=== PATIENT | male | born 1955 ===

== ENCOUNTER 2016-12-13 02:47 | Emergency (ER) | payer OTHER ==
[2016-12-13 02:56] VITALS: TEMP 97.5
--- NOTE | 2016-12-13 03:03 | C.PDOC ---
History Of Present Illness Patient presents to the ER with a complaint of a sudden, dull, throbbing headache. Patient reports he has been complaint with his blood pressure medication, however, headache still persists. Patient's blood pressure was 108/ 106 on arrival. Denies vision changes, nausea, or vomiting. Time Seen by Provider: 12/13/16 03:03 Chief Complaint (Nursing): Headache History Per: Patient History/Exam Limitations: no limitations Onset/Duration Of Symptoms: Hrs, Sudden Onset Current Symptoms Are (Timing): Still Present Severity: Moderate Pain Scale Rating Of: 4 Quality: Dull, Other (Throbbing) Preceeding Symptoms: None Associated Symptoms: denies: Photophobia, Blurred Vision, Nausea, Vomiting Recent travel outside of the [place]: No Past Medical History Reviewed: Historical Data, Nursing Documentation, Vital Signs Vital Signs: Last Vital Signs Temp 97.5 F L 12/13/16 02:48 Pulse 45 L 12/13/16 04:20 Resp 14 12/13/16 04:20 BP 149/98 H 12/13/16 04:20 Pulse Ox 100 12/13/16 04:38 - Medical History PMH: HTN Surgical History: No Surg Hx Family History: States: No Known Family Hx - Social History Hx Alcohol Use: Yes Hx Substance Use: No - Immunization History Hx Tetanus Toxoid Vaccination: No Hx Influenza Vaccination: No Hx Pneumococcal Vaccination: No Review Of Systems Eyes: Negative for: Vision Change Gastrointestinal: Negative for: Nausea, Vomiting Neurological: Positive for: Headache Physical Exam - Physical Exam Appears: Non-toxic Skin: Warm, Dry Oral Mucosa: Moist Chest: Symmetrical, No Tenderness Cardiovascular: Rhythm Regular, No Murmur Respiratory: No Rales, No Rhonchi, No Wheezing Gastrointestinal/Abdominal: Soft, No Tenderness Neurological/Psych: Oriented x3, Other (No focal deficits) ED Course And Treatment - Laboratory Results Result Diagrams: 12/13/16 03:20 12/13/16 03:20 ECG: Interpreted By Me ECG Rhythm: Sinus Bradycardia (46), Nonspecific Changes O2 Sat by Pulse Oximetry: 100 Pulse Ox Interpretation: Normal Progress Note: Catapres PO, toradol IVP, and zofran IVP administered. Reevaluation Time: 05:47 Reassessment Condition: Improved Disposition Counseled Patient/Family Regarding: Studies Performed, Diagnosis, Need For Followup, Rx Given - Disposition Referrals: Nisha Bell APN [Advanced Practice Nurse] - Disposition: HOME/ ROUTINE Disposition Time: 03:03 Condition: FAIR Additional Instructions: Please return if symptoms recur Prescriptions: Naproxen [Naprosyn] 1 tab PO BID PRN #25 tab PRN Reason: Pain Ondansetron ODT [Zofran ODT] 1 odt PO TID #15 odt Instructions: Migraine Headache (ED), Hypertension (DC) - Clinical Impression Clinical Impression: Headache, Hypertension - Scribe Statement The provider has reviewed the documentation as recorded by the Scribe Clay Cardenas All medical record entries made by the Scribe were at my direction and personally dictated by me. I have reviewed the chart and agree that the record accurately reflects my personal performance of the history, physical exam, medical decision making, and the department course for this patient. I have also personally directed, reviewed, and agree with the discharge instructions and disposition.
[2016-12-13 03:18] LABS: BASO # 0.1 K/uL (0.0-0.2); BASO % 0.9 % (0.0-2.0); EOS # 0.1 K/uL (0.0-0.7); EOS % 1.5 % (0.0-4.0); LYMPH # 2.7 K/uL (1.0-4.3); LYMPH % 45.3 % (20.0-40.0); MEAN CELL VOLUME 80.5 fL (80.0-94.0); MEAN CORPUSCULAR HEMOGLOBIN 25.8 pg (27.0-31.0); MEAN PLATELET VOLUME 10.3 fL (7.2-11.7); MONO # 0.7 K/uL (0.0-0.8); RED CELL DISTRIBUTION WIDTH 14.5 % (11.5-14.5); WHITE BLOOD COUNT 5.9 K/uL (4.8-10.8)
[2016-12-13 03:26] LABS: CHLORIDE 101 mmol/L (98-107); POTASSIUM 3.8 mmol/L (3.6-5.2); SODIUM 139 mmol/L (132-148)
[2016-12-13 03:28] LABS: ALKALINE PHOSPHATASE 80 U/L (38-126); AST/SGOT 25 U/L (17-59); BILIRUBIN,TOTAL 0.3 mg/dL (0.2-1.3); CARBON DIOXIDE 26 mmol/L (22-30); GFR AFRICAN-AMERICAN > 60; TOTAL PROTEIN 7.4 g/dL (6.3-8.3)
[2016-12-13 03:29] LABS: ALT/SGPT 25 U/L (21-72); BLOOD UREA NITROGEN 20 mg/dL (9-20); CALCIUM 9.3 mg/dl (8.6-10.4); GLUCOSE,RANDOM 83 mg/dL (75-110)
--- NOTE | 2016-12-13 03:57 | CT ---
EXAM: CT Head Without Intravenous Contrast CLINICAL HISTORY: 61 years old, male; Pain; Headache TECHNIQUE: Axial computed tomography images of the head/brain without intravenous contrast. This CT exam was performed using one or more of the following dose reduction techniques: automated exposure control, adjustment of the mA and/or kV according to patient size, and/or use of iterative reconstruction technique. COMPARISON: No relevant prior studies available. FINDINGS: Brain: No intracranial hemorrhage. No mass. No definite edema. Ventricles: No hydrocephalus. Bones/joints: No acute fracture. Soft tissues: Unremarkable. Sinuses: Scattered minimal mucosal thickening of ethmoid sinuses. Mastoid air cells: No mastoid effusion. Orbits: Unremarkable as visualized. IMPRESSION: 1. No acute intracranial abnormality. 2. Incidental/non-acute findings are described above.
[2016-12-13 04:20] LABS: URINE BILIRUBIN NEGATIVE (NEGATIVE); URINE BLOOD NEGATIVE (NEGATIVE); URINE COLOR Straw (YELLOW); URINE GLUCOSE (UA) NORMAL (Normal); URINE KETONE NEGATIVE (NEGATIVE); URINE LEUKOCYTE ESTERASE NEG Leu/uL (Negative); URINE PROTEIN NEGATIVE (NEGATIVE); URINE UROBILINOGEN NORMAL mg/dL (0.2-1.0); WBC URINE < 1 /hpf (0-5)
[2016-12-13 04:21] VITALS: BP 149/98; PULSE 45; RESP 14
[2016-12-13 04:35] VITALS: O2SAT 100
--- NOTE | 2016-12-18 15:06 | CARD ---
APPROVED REPORT EKG Measurement Heart [id number] <Conclusion> Sinus bradycardia Possible Left atrial enlargement Left ventricular hypertrophy Abnormal ECG
== END 2016-12-13 06:08 | disposition home or self-care (01) ==
LOC: C.ER 02:47
DX: I10 Essential (primary) hypertension (principal); R51 Headache
CPT/HCPCS: 70450; 80053; 81001; 85025; 96374; 99285; J1885

== ENCOUNTER 2016-12-18 18:45 | Inpatient (IN) | payer OTHER ==
[2016-12-18 21:33] LABS: BASO % 0.1 % (0.0-2.0); HEMATOCRIT 45.7 % (35.0-51.0); LYMPH # 0.8 K/uL (1.0-4.3); LYMPH % 6.3 % (20.0-40.0); MEAN CELL VOLUME 80.4 fL (80.0-94.0); MEAN CORPUSCULAR HEMOGLOBIN 25.4 pg (27.0-31.0); MEAN CORPUSCULAR HGB CONC 31.6 g/dL (33.0-37.0); MEAN PLATELET VOLUME 10.3 fL (7.2-11.7); MONO # 0.5 K/uL (0.0-0.8); MONO % 3.8 % (0.0-10.0); PLATELET COUNT 253 K/uL (130-400); RED CELL DISTRIBUTION WIDTH 13.9 % (11.5-14.5)
[2016-12-18 21:34] LABS: WHITE BLOOD COUNT 12.1 K/uL (4.8-10.8)
[2016-12-18 21:41] LABS: POTASSIUM 4.7 mmol/L (3.6-5.2)
[2016-12-18 21:43] LABS: ALB/GLOB RATIO 1.6 (1.0-2.1); BILIRUBIN,TOTAL 1.1 mg/dL (0.2-1.3); TOTAL PROTEIN 8.3 g/dL (6.3-8.3)
[2016-12-18 21:44] LABS: CALCIUM 9.6 mg/dl (8.6-10.4)
[2016-12-18 21:47] LABS: RBC URINE 4 /hpf (0-3); URINE BACTERIA OCC (<OCC); URINE BILIRUBIN 1+ (NEGATIVE); URINE BLOOD NEGATIVE (NEGATIVE); URINE COLOR Amber (YELLOW); URINE GLUCOSE (UA) NORMAL (Normal); URINE KETONE TRACE mg/dL (NEGATIVE); URINE LEUKOCYTE ESTERASE TRACE Leu/uL (Negative); URINE PROTEIN 2+ mg/dL (NEGATIVE); WBC URINE 12 /hpf (0-5)
[2016-12-18] MEDS ORDERED: cefTRIAXone IV 1 gm in Dextros 50 ML IVPB ONE (23:36)
[2016-12-18] MEDS: Dextrose 5%/0.45% NS 1,000 ML IV SCH (23:46)
[2016-12-19 01:42] VITALS: RESP 20
[2016-12-19 07:43] LABS: BASO % 0.3 % (0.0-2.0); EOS % 0.3 % (0.0-4.0); HEMATOCRIT 37.9 % (35.0-51.0); LYMPH # 2.1 K/uL (1.0-4.3); LYMPH % 21.1 % (20.0-40.0); MEAN CELL VOLUME 79.5 fL (80.0-94.0); MEAN CORPUSCULAR HEMOGLOBIN 25.8 pg (27.0-31.0); MEAN CORPUSCULAR HGB CONC 32.4 g/dL (33.0-37.0); MEAN PLATELET VOLUME 10.3 fL (7.2-11.7); MONO # 1.1 K/uL (0.0-0.8); MONO % 11.7 % (0.0-10.0); WHITE BLOOD COUNT 9.8 K/uL (4.8-10.8)
[2016-12-19 07:51] LABS: POTASSIUM 3.6 mmol/L (3.6-5.2)
[2016-12-19 07:54] LABS: ALB/GLOB RATIO 1.7 (1.0-2.1); BILIRUBIN,TOTAL 0.9 mg/dL (0.2-1.3); CALCIUM 8.1 mg/dl (8.6-10.4); TOTAL PROTEIN 6.1 g/dL (6.3-8.3)
--- NOTE | 2016-12-19 08:18 | CT ---
PROCEDURE: CT Abdomen and Pelvis without intravenous contrast HISTORY: left flank pain COMPARISON: None. TECHNIQUE: Axial computed tomographic images were performed through the abdomen and pelvis without intravenous contrast. Subsequently, sagittal and coronal reformatted images were obtained. Radiation dose: Total exam DLP = 336 mGy-cm. This CT exam was performed using one or more of the following dose reduction techniques: Automated exposure control, adjustment of the mA and/or kV according to patient size, and/or use of iterative reconstruction technique. FINDINGS: LOWER THORAX: Unremarkable. LIVER: Calcified granuloma in the liver. GALLBLADDER AND BILE DUCTS: Unremarkable. PANCREAS: Unremarkable. No gross lesion or ductal dilatation. SPLEEN: Unremarkable. ADRENALS: Unremarkable. No mass. KIDNEYS AND URETERS: Unremarkable. No hydronephrosis. No solid mass. VASCULATURE: Unremarkable. No aortic aneurysm. BOWEL: Moderate fecal retention in the colon consistent with constipation. APPENDIX: Not well visualized. PERITONEUM: Unremarkable. No free fluid. No free air. LYMPH NODES: Unremarkable. No enlarged lymph nodes. BLADDER: Mildly prominent urinary bladder wall thickness which may be secondary to a decompressed state or cystitis. REPRODUCTIVE: Mild prostatic hypertrophy. BONES: Degenerative facet arthropathy in the lower cervical spine. OTHER FINDINGS: Umbilical fat containing hernia. IMPRESSION: No evidence of renal calculi. Moderate fecal retention in the colon consistent with constipation. Mildly prominent urinary bladder wall thickness which may be secondary to a decompressed state or cystitis. Clinical correlation. Mild prostatic hypertrophy. These findings were preliminarily reported at 10:52 p.m. on 12/18/[address] Jelani Hedrick from [facility].
[2016-12-19] MEDS: Dextrose 5%/0.45% NS 1,000 ML IV SCH ×3 (09:00→21:23)
[2016-12-19 09:03] LABS: BASOPHIL 1 % (0-2); NEUTROPHIL 93 % (50-75); TOTAL CELLS COUNTED 100
--- NOTE | 2016-12-19 09:43 | CP.PCM.PN ---
Subjective - Date & Time of Evaluation Date of Evaluation: 12/19/16 Time of Evaluation: 07:30 - Subjective Subjective: Medicine Note- Dr. Hernandez's service Patient was seen and examined at bedside. Patient reports that yesterday morning , he was at work and was instructed to spread some type of herbicide on weeds, however he forgot to wear a mask. Initially he was okay, until around lunch time when he started to feel nauseous. He decided not to eat lunch and continue working. Closer to around 3:30pm, he began feeling dizzy but continued working. When he finished working, he began to vomit. He went back home and vomited again then decided to come to the ED, where he again vomited. He does not recall what the vomit looked like exactly, but he denies any blood/ black content. No events overnight, per nursing. Objective - Vital Signs/Intake and Output Vital Signs (last 24 hours): Temp Pulse Resp BP Pulse Ox 97.9 F 54 L 20 113/62 98 12/19/16 08:04 12/19/16 08:04 12/19/16 08:04 12/19/16 08:04 12/19/16 08:04 Intake and Output: 12/19/16 12/19/16 06:59 18:59 Intake Total 300 Output Total 250 Balance 50 - Medications Medications: Current Medications Dextrose/Sodium Chloride (Dextrose 5%/0.45% Ns 1000 Ml) 1,000 mls @ 100 mls/hr IV .Q10H [facility] Last Admin: 12/18/16 23:46 Dose: 100 mls/hr Morphine Sulfate (Morphine) 2 mg IVP Q4H PRN PRN Reason: Pain, moderate (4-7) Pneumococcal Polyvalent Vaccine (Pneumovax 23 Vaccine) 0.5 ml IM .ONCE ONE Stop: 12/20/16 10:01 - Labs Labs: 12/19/16 07:09 12/19/16 07:09 - Constitutional Appears: Non-toxic, No Acute Distress - Head Exam Head Exam: ATRAUMATIC, NORMAL INSPECTION, NORMOCEPHALIC - Eye Exam Pupil Exam: NORMAL ACCOMODATION, PERRL - ENT Exam ENT Exam: Mucous Membranes Moist - Respiratory Exam Respiratory Exam: Clear to Ausculation Bilateral, NORMAL BREATHING PATTERN. absent: Prolonged Expiratory Phase, Rales, Rhonchi, Wheezes - Cardiovascular Exam Cardiovascular Exam: REGULAR RHYTHM, +S1, +S2 - GI/Abdominal Exam GI & Abdominal Exam: Soft, Normal Bowel Sounds. absent: Tenderness, Diminished Bowel Sounds, Hernia, Hypoactive Bowel Sounds, Mass - Extremities Exam Extremities Exam: Normal Capillary Refill - Neurological Exam Neurological Exam: Alert, Awake, Oriented x3 - Psychiatric Exam Psychiatric exam: Normal Affect, Normal Mood - Skin Skin Exam: Dry, Intact, Normal Color, Warm Assessment and Plan - Assessment and Plan (Free Text) Assessment: Acute Renal Insufficiency Consult Nephro- Dr. Freeman f/u Renal Ultrasound Continue IVF D5/ 1/2 NS @ 100cc/hr Morphine 2mg IVP Q4h PRN Give one dose of Ceftriaxone 1gm IVPB in ED CT Abdomen Pelvis w/o PO or IV contrast- Moderate fecal retention in the colon consistent with constipation. Mildly prominent urinary bladder wall thickeness which may be secondary to a decompressed state or cystitis. Clinical correlation. Mild prostatic hypertrophy. Hypertension Will hold home med: Lisinopril 10mg Daily, due to renal insuffiency Prophylactic Measure Heparin 5000U SC Q8h Protonix 40mg PO Daily [facility]CD[facility]
[2016-12-19] MEDS: Pantoprazole 40 mg EC Tab PO SCH (10:40)
--- NOTE | 2016-12-19 11:30 | CP.PCM.CON ---
History of Present Illness - History of Present Illness History of Present Illness: 61 y/o male with Hx/o HTN presented to ER yesterday because of nausea , vomiting & weakness since yesterday. Pt had reported that at his job he used a weed killer without wearing a mask & started to feel nauseous & weak which got progressively worse toward the end of the day. Vomited several times & did not eat anything all day. Pt cannot recall name of the herbicide. Denied hx/o kidney dis. Had blood tests 2 mos ago & were normal. Denied any family Hx/o kidney dis. Past Patient History - Past Medical History & Family History Past Medical History?: Yes - Past Social History Smoking Status: Never Smoked - CARDIAC Hx Cardiac Disorders: Yes Hx Hypertension: Yes - PULMONARY Hx Respiratory Disorders: No - NEUROLOGICAL Hx Neurological Disorder: No - HEENT Hx HEENT Problems: No - RENAL Hx Chronic Kidney Disease: No - ENDOCRINE/METABOLIC Hx Endocrine Disorders: No - HEMATOLOGICAL/ONCOLOGICAL Hx Blood Disorders: No - INTEGUMENTARY Hx Dermatological Problems: No - MUSCULOSKELETAL/RHEUMATOLOGICAL Hx Musculoskeletal Disorders: No Hx Falls: No - GASTROINTESTINAL Hx Gastrointestinal Disorders: No - GENITOURINARY/GYNECOLOGICAL Hx Genitourinary Disorders: No - PSYCHIATRIC Hx Psychophysiologic Disorder: No Hx Substance Use: No - SURGICAL HISTORY Hx Surgeries: No - ANESTHESIA Hx Anesthesia: No Meds Allergies/Adverse Reactions: Allergies Allergy/AdvReac Type Severity Reaction Status Date / Time No Known Allergies Allergy Verified 12/19/16 00:28 - Medications Medications: Current Medications Docusate Sodium (Colace) 100 mg PO TID [facility] Heparin Sodium (Porcine) (Heparin) 5,000 units SC Q8 [facility] Dextrose/Sodium Chloride (Dextrose 5%/0.45% Ns 1000 Ml) 1,000 mls @ 100 mls/hr IV .Q10H [facility] Last Admin: 12/19/16 10:41 Dose: 100 mls/hr Morphine Sulfate (Morphine) 2 mg IVP Q4H PRN PRN Reason: Pain, moderate (4-7) Pantoprazole Sodium (Protonix Ec Tab) 40 mg PO DAILY [facility] Last Admin: 12/19/16 10:40 Dose: 40 mg Pneumococcal Polyvalent Vaccine (Pneumovax 23 Vaccine) 0.5 ml IM .ONCE ONE Stop: 12/20/16 10:01 Physical Exam - Constitutional Additional comments: Appears weak A&O - Head Exam Head Exam: ATRAUMATIC, NORMOCEPHALIC - Eye Exam Eye Exam: Normal appearance Additional comments: No icterus - ENT Exam ENT Exam: Mucous Membranes Dry - Respiratory Exam Additional comments: Lungs clear - Cardiovascular Exam Cardiovascular Exam: REGULAR RHYTHM - GI/Abdominal Exam GI & Abdominal Exam: Soft Additional comments: Mild epigastric tenderness - Extremities Exam Additional comments: No edema or cyanosis Results - Vital Signs Recent Vital Signs: Last Vital Signs Temp 97.9 F 12/19/16 08:04 Pulse 54 L 12/19/16 08:04 Resp 20 12/19/16 08:04 BP 113/62 12/19/16 08:04 Pulse Ox 98 12/19/16 08:04 - Labs Result Diagrams: 12/19/16 07:09 12/19/16 07:09 Labs: Laboratory Results - last 24 hr 12/19/16 12/19/16 07:09 07:09 WBC 9.8 RBC 4.77 Hgb 12.3 D Hct 37.9 MCV 79.5 L MCH 25.8 L MCHC 32.4 L RDW 14.0 Plt Count 201 MPV 10.3 Neut % (Auto) 66.6 Lymph % (Auto) 21.1 [place] % (Auto) 11.7 H Eos % (Auto) 0.3 Baso % (Auto) 0.3 Neut # 6.5 Lymph # 2.1 [place] # 1.1 H Eos # 0.0 Baso # 0.0 Sodium 136 Potassium 3.6 Chloride 102 Carbon Dioxide 24 Anion Gap 14 BUN 30 H Creatinine 2.0 H Est GFR ( Amer) 41 Est GFR (Non-Af Amer) 34 Random Glucose 106 Calcium 8.1 L Total Bilirubin 0.9 AST 21 ALT 18 L D Alkaline Phosphatase 50 Total Protein 6.1 L Albumin 3.8 Globulin 2.3 Albumin/Globulin Ratio 1.7 Assessment & Plan - Assessment and Plan (Free Text) Assessment: ZACK probably sec. to dehydration Some improvement in renal function over night Hx/o HTN Adverse reaction to an herbicide Plan: Continue with IV hydration Renal US Monitor renal function
--- NOTE | 2016-12-19 12:18 | US ---
PROCEDURE: Ultrasound of the Kidneys HISTORY: Dx acute renal failure COMPARISON: None available. TECHNIQUE: Sonogram of the kidneys. FINDINGS: RIGHT KIDNEY: Measures: 10.5 x 4.2 x 5.3 cm. No obstructing calculus or hydronephrosis identified. LEFT KIDNEY: Measures: 10.7 x 5.5 x 5.2 cm. No obstructing calculus or hydronephrosis identified. OTHER FINDINGS: Decompressed urinary bladder limits evaluation. IMPRESSION: Unremarkable renal sonogram.
[2016-12-19 23:27] VITALS: O2SAT 98
[2016-12-20] MEDS: Dextrose 5%/0.45% NS 1,000 ML IV SCH (05:21)
[2016-12-20 07:43] LABS: BASO % 0.8 % (0.0-2.0); EOS % 0.6 % (0.0-4.0); HEMATOCRIT 35.8 % (35.0-51.0); LYMPH # 1.6 K/uL (1.0-4.3); LYMPH % 35.8 % (20.0-40.0); MEAN CELL VOLUME 80.5 fL (80.0-94.0); MEAN CORPUSCULAR HEMOGLOBIN 26.1 pg (27.0-31.0); MEAN CORPUSCULAR HGB CONC 32.5 g/dL (33.0-37.0); MEAN PLATELET VOLUME 10.3 fL (7.2-11.7); MONO # 0.5 K/uL (0.0-0.8); MONO % 10.6 % (0.0-10.0); NRBC % 0.2 % (0.0-2.0); RED CELL DISTRIBUTION WIDTH 14.3 % (11.5-14.5)
[2016-12-20 07:52] LABS: WHITE BLOOD COUNT 4.5 K/uL (4.8-10.8)
[2016-12-20 07:57] VITALS: BP 133/76; PULSE 75; TEMP 97.3
[2016-12-20 08:15] LABS: CHLORIDE 103 mmol/L (98-107); POTASSIUM 4.1 mmol/L (3.6-5.2); SODIUM 136 mmol/L (132-148)
[2016-12-20 08:17] LABS: ALB/GLOB RATIO 1.3 (1.0-2.1); ALKALINE PHOSPHATASE 47 U/L (38-126); AST/SGOT 17 U/L (17-59); BILIRUBIN,TOTAL 0.8 mg/dL (0.2-1.3); CARBON DIOXIDE 27 mmol/L (22-30); GFR AFRICAN-AMERICAN > 60
[2016-12-20 08:18] LABS: ALT/SGPT 19 U/L (21-72); BLOOD UREA NITROGEN 24 mg/dL (9-20); CALCIUM 8.4 mg/dl (8.6-10.4); GLUCOSE,RANDOM 103 mg/dL (75-110)
[2016-12-20] MEDS: Pantoprazole 40 mg EC Tab PO SCH (09:46)
[2016-12-20] MEDS ORDERED: Pneumococcal 23-Valent Vaccine IM ONE (10:00)
--- NOTE | 2016-12-20 11:09 | CP.PCM.PN ---
Subjective - Date & Time of Evaluation Date of Evaluation: 12/20/16 Time of Evaluation: 11:07 - Subjective Subjective: 61 Y/O MALE WITH PMHX HTN, ADMITTED FOR ZACK, MOST LIKELY DUE TO HEHYDRATION, RENAL FUNCTION IMPROVED W/IV HYDRATION, BUN- 24, CREATININE 1.1, RENAL US- UNREMARKABLE, PT SEEN AND EXAMINED BY DR HICKS TODAY, PT D/C HOME PER DR HICKS, EDUCATED TO F/U WITH HIM AND DR AGARWAL IN THE OFFICE, CONTINUE HOME MEDS , RETURN TO ED IF ANY WORSENING S/S, AGREE, VERBALIZE UNDERSTANDING. Objective - Vital Signs/Intake and Output Vital Signs (last 24 hours): Temp Pulse Resp BP Pulse Ox 97.3 F L 75 20 133/76 98 12/20/16 07:56 12/20/16 07:56 12/20/16 07:56 12/20/16 07:56 12/20/16 07:56 Intake and Output: 12/20/16 12/20/16 06:59 18:59 Intake Total 2460 Output Total 300 Balance 2160 - Medications Medications: Current Medications Docusate Sodium (Colace) 100 mg PO TID [facility] Last Admin: 12/20/16 09:46 Dose: 100 mg Heparin Sodium (Porcine) (Heparin) 5,000 units SC Q8 [facility] Last Admin: 12/20/16 05:21 Dose: 5,000 units Dextrose/Sodium Chloride (Dextrose 5%/0.45% Ns 1000 Ml) 1,000 mls @ 100 mls/hr IV .Q10H [facility] Last Admin: 12/20/16 05:21 Dose: 100 mls/hr Morphine Sulfate (Morphine) 2 mg IVP Q4H PRN PRN Reason: Pain, moderate (4-7) Last Admin: 12/19/16 13:21 Dose: 2 mg Pantoprazole Sodium (Protonix Ec Tab) 40 mg PO DAILY [facility] Last Admin: 12/20/16 09:46 Dose: 40 mg - Labs Labs: 12/20/16 07:20 12/20/16 07:20
--- NOTE | 2016-12-22 08:58 | HP ---
The patient is a 61-year-old male chief complaint of nausea, vomiting, abdominal pain, weakness. 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 The patient feels nausea, weakness, abdominal pain. The patient came to the hospital with weakness, fatigue. Laboratory tests show acu te kidney failure. Of note, the patient was in the hospital about 2 days before with ____ kidney fun ction. 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 The patient does not smoke or drink. The patient i s an immigrant from [place]. PHYSICAL EXAMINATION: GENERAL: The patient is awake, alert and oriented. VITAL SIGNS: Temperature 98, pulse 90. HEENT: Within normal limits. NECK: Supple. CHEST: Symmetrical. HEART: Regular. ABDOMEN: Soft. EXTREMITIES: No edema. The patient suffers from acute kidney failure, abdominal pain, possibly dehydration. The patient giv en IV hydration. Get renal consult, renal ultrasound. Monitor intake and output. Franki Jimenez MD cc: [id number] TT: 12/19/2016 11:44:37 or 12/22/2016 07:56:44
--- NOTE | 2017-01-20 08:01 | CARD ---
APPROVED REPORT EKG Measurement Heart [id number] <Conclusion> Normal sinus rhythm Moderate voltage criteria for LVH, may be normal variant ST elevation, consider early repolarization, pericarditis, or injury Abnormal ECG
== END 2016-12-20 13:15 | disposition home or self-care (01) | DRG 316 ==
LOC: C.ER 18:45 → C.9E 23:04 → C.3T 23:50
PROVIDERS: ADMIT Internal Medicine Pulmonary Disease; ATTEND Internal Medicine Pulmonary Disease
DX: N17.9 Acute kidney failure, unspecified (principal); E86.0 Dehydration; R11.2 Nausea with vomiting, unspecified; T60.3X1A Toxic effect of herbicides and fungicides, accidental (unintentional), initial encounter; Y92.89 Other specified places as the place of occurrence of the external cause

== ENCOUNTER → 2018-10-15 | Outpatient (CLI) | payer OTHER | LOC: C.RADH 09:10 | DX: R97.20 Elevated prostate specific antigen [PSA] (principal) ==